=== PATIENT | male | born 1955 | race Native Hawaiian/Other Pacific Islander ===

== ENCOUNTER 2016-10-12 08:00 | Outpatient (CLI) | payer BC ==
[~2016-10-12] VITALS: Ht 177.8 cm; Wt 98.9 kg
== END 2016-10-12 19:00 | disposition home or self-care (01) ==
LOC: NM 08:00
DX: R07.89 Other chest pain (principal)
CPT/HCPCS: A9500; J2785

== ENCOUNTER 2017-08-26 10:13 | Outpatient (CLI) | payer BC | END 2017-08-26 19:11 | disposition home or self-care (01) | LOC: RESP 10:13 | DX: J44.9 Chronic obstructive pulmonary disease, unspecified (principal); F17.210 Nicotine dependence, cigarettes, uncomplicated; D35.02 Benign neoplasm of left adrenal gland ==

== ENCOUNTER 2018-09-22 11:14 | Outpatient (CLI) | payer BC | END 2018-09-22 21:45 | disposition home or self-care (01) | LOC: RESP 11:14 | DX: J44.9 Chronic obstructive pulmonary disease, unspecified (principal) ==